=== PATIENT | female | born 1970 | race Hispanic/Latino ===

== ENCOUNTER 2021-05-10 11:42 | Outpatient (CLI) | payer OTHER, SELFPAY ==
--- NOTE | ~2021-05-10 | US_ITS ---
US abdomen complete EXAMINATION: US Abdomen Complete INDICATION: Upper abdomen pain. PROCEDURE: Realtime High Resolution abdomen ultrasound. COMPARISON: No prior studies for comparison FINDINGS: Gallbladder is surgically absent. Common bile duct measures 3 mm. Liver echotexture within normal limits without focal mass. Pancreas within normal limits. Pancreati c tail is obscured by bowel gas. Spleen is unremarkeable. Renal echotexture is within normal limits bilaterally without hydronephrosis, contour deforming mass or renal stone. Right kidney measures 9.7 cm. Left kidney measures 9.5 cm. Visualized aspects of the aorta and IVC are within normal limits. Portal vein is patent. No sonograph ic Wilkins's sign indicated by the technologist. IMPRESSION: 1: Unremarkable abdominal ultrasound. Reviewed, dictated and finalized at location A.
[2021-05-10 13:15] LABS: Basophils Percent Auto 0.7 % (0.2-1.2); Eosinophils Absolute Auto 0.2 K/mm3 (0-0.3); Eosinophils Percent Auto 2.6 % (0-4.4); Hemoglobin 12.9 g/dL (12.0-15.0); Immature Granulocyte Absolute 0.02 K/mm3 (0.00-0.031); Immature Granulocyte Percent A 0.3 % (0-0.5); Lymphocytes Absolute Auto 1.74 K/mm3 (0.9-3.2); Lymphocytes Percent Auto 28.7 % (18.3-44.2); Mean Corpuscular HGB Conc 32.3 g/dl (32-36); Mean Corpuscular Hemoglobin 28.9 pg (26-34); Mean Corpuscular Volume 89.5 fl (80-100); Mean Platelet Volume 9.4 fl (7.4-10.4); Monocytes Absolute Auto 0.2 K/mm3 (0.1-0.6); Neutrophils Absolute Auto 3.9 K/mm3 (1.3-6.7); Neutrophils Percent Auto 63.7 % (45.5-73.1); Platelet Count Result 289 k/mm3 (150-375); Red Blood Count 4.47 M/mm3 (4.2-5.4); Red Cell Distribution Width 13.5 % (11.5-14.5); White Blood Count 6.1 K/mm3 (4.5-10.0)
[2021-05-10 13:33] LABS: Alanine Aminotransferase 19 U/L (4-35); Albumin Level 4.6 g/dL (3.5-5.1); Alkaline Phosphatase 112 U/L (38-126); Amylase 129 U/L (30-110); Anion Gap 6 mmol/L (8-16); Aspartate Amino Transferase 31 U/L (14-36); Bilirubin,Total 0.2 mg/dL (0.2-1.3); Blood Urea Nitrogen 10 mg/dL (7-17); Calcium 9.6 mg/dL (8.4-10.2); Carbon Dioxide 30 mmol/L (22-30); Chloride 103 mmol/L (98-107); Estimated Glomerular Filt Rate > 60; Glucose 92 mg/dL (65-110); Lipase 76 U/L (23-300); Sodium 139 mmol/L (137-145)
[2021-05-10 14:17] LABS: Add Urine Microscopic? YES; Appearance Urine Cloudy (Clear); Bilirubin Urine Negative (Negative); Blood Urine Negative (Negative); Color Urine Yellow (Yellow); Glucose Urine UA Negative (Negative); Ketones Urine Trace mg/dL (Negative); Leukocyte Esterase Ur 2+ LEU/UL (Negative); Nitrate Urine Negative (Negative); Protein Urine Negative (Negative); RBC Urine 0-2 /hpf (0-2); Specific Grav Ur 1.011 (1.001-1.035); Squamous Epithelial Cell Urine Moderate /hpf (Few); Urobilinogen Urine Negative mg/dL (<2.0)
== END 2021-05-10 11:43 | disposition home or self-care (01) ==
PROVIDERS: PCP Internal Medicine; Visit Provider Nurse Practitioner
DX: R10.10 Upper abdominal pain, unspecified (principal); R11.0 Nausea
CPT/HCPCS: 36415; 76700; 80053; 81001; 82150; 83690; 85025

== ENCOUNTER 2024-06-22 09:27 | Emergency (ER) | payer OTHER, SELFPAY ==
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
[2024-06-22 09:37] VITALS: BP 148/79; PULSE 95; RESP 18; TEMP 36.6; O2SAT 99
--- OUTSIDE RECORDS SUMMARY | 2024-06-22 10:03 | XMS_ITS | Clinical Summary ---
Author Organization [facility] Address [address] [place] [address] Care Team Providers Care Utility Driver Name Role Phone Renato Hammonds DO Primary Care Provider [phone] Source Comments [facility],non-owned Affiliates and Associated Physician Practices is amultiple site organization consisting of ambulatory clinics and hospital sitesin [place], [place], [place] and [place]. This disclosure is being madepursuant to the Care Everywhere program and may not contain all information available regarding this patient. Last updated 17.[facility] Allergies No known active allergies Medications * Be aware that medications may not be up to date on this document. Alwaysverify current medications with the patient. Acetaminophen (TYLENOL) 325 MG CAPS Take 325 mg by mouth Active aspirin (ASPIRIN) 325 MG tablet Take 1 Tab by mouth once daily 02/13/2016 Active Social History Tobacco Use Types Packs/Day Years Used Date Smoking Tobacco: Never Assessed Alcohol Use Standard Drinks/Week Comments Yes 2 (1 standard drink = 0.6 oz pur e alcohol) Comments No Sex and Gender Information Value Date Recorded Sex Assigned at Not on file Legal Sex Female 6:27 AM CONSUMER MARKETING ANALYST Gender Identity Not on file Sexual Orientation Not on file Last Filed Vital Signs Vital Sign Reading Time Taken Comments Blood Pressure 116/67 02/13/2016 12:01 PM CONSUMER MARKETING ANALYST Pulse 66 02/13/2016 12:01 PM CONSUMER MARKETING ANALYST Temperature 36.6 C (97.9 F) 02/13/2016 12:01 PM CONSUMER MARKETING ANALYST Respiratory Rate 16 02/13/2016 12:01 PM CONSUMER MARKETING ANALYST Oxygen Saturation 99% 02/13/2016 12:01 PM CONSUMER MARKETING ANALYST Inhaled Oxygen Concentration - - Weight 58.5 kg (129 lb) 02/12/2016 10:58 AM CONSUMER MARKETING ANALYST Height 147.3 cm (4' 10 ) 02/12/2016 10:58 AM CONSUMER MARKETING ANALYST Body Mass Index 26.96 02/12/2016 10:58 AM CONSUMER MARKETING ANALYST Plan of Treatment Health Maintenance Due Date Last Done Comments COLOGUARD (AGES 45-75) - COL ON CA SCREENING 1970 COLON MONITORING 1970 COLONOSCOPY - COLON CA SCREENING 1970 CT COLONOGRAPHY - COLON CA SCREENING 1970 Colorectal Cancer Screening 1970 FIT - COLON CA SCREENING 1970 FLEX SIG - COLON CA SCREENING 1970 MAMMOGRAM 1970 HIV SCREENING 1985 HEPATITIS C SCREENING 02/05/1988 DTAP/TDAP/TD VACCINES (1 - Tdap) 1989 HEPATITIS B VACCINE (1 of 3 - 19+ 3-dose series) 1989 PNEUMOCOCCAL VACCINE 50+ (1 of 1 - PCV) 02/10/2020 ZOSTER VACCINE (1 of 2) 02/10/2020 LIPID TESTING 02/12/2021 02/13/2016 COVID-19 VACCINE (1 - 2023-2 5 season) 2023 DEPRESSION SCREENING 02/19/2024 INFLUENZA VACCINE (Season Ended) 2024 HIB VACCINE Aged Out No longer eligi ble based on patient's age to complete this topic HPV VACCINE Aged Out No longer eligi ble based on patient's age to complete this topic MENINGOCOCCAL (Group B) VACC INE SHARED DECISION-MAKING Aged Out No longer eligibl e based on patient's age to complete this topic MENINGOCOCCAL GROUPS A/C/Y/W VACCINE Aged Out No longer eligible b ased on patient's age to complete this topic Procedures Procedure Name Priority Date/Time Associated Diagnosis Comments LIPID PROFILE AM Draw 02/13/2016 1:21 AM CONSUMER MARKETING ANALYST from Last 3 Months or Most Recently Relevant to Health Maintenance Results * LIPID PROFILE (02/13/2016 1:21 AM CONSUMER MARKETING ANALYST) Cholesterol 172 <200 mg/dL 02/13/2016 1:46 AM CONSUMER MARKETING ANALYST [facility] Triglycerides 87 <150 mg/dL 02/13/2016 1:46 AM CONSUMER MARKETING ANALYST [facility] HDL Cholesterol 89 >40 mg/dL 12/26/201 6 1:46 AM CONSUMER MARKETING ANALYST [facility] LDL Calculated 66 <130 mg/dL 02/13/2016 1:46 AM CONSUMER MARKETING ANALYST [facility] VLDL Calculated 17 <=30 mg/dL 6 1:46 AM [facility] Chol HDL Ratio 1.9 <4.5 02/13/2016 1:46 AM CONSUMER MARKETING ANALYST [facility] LDL/HDL Ratio 0.7 <5.0 02/13/2016 1:46 AM CONSUMER MARKETING ANALYST [facility] Blood BLOOD SPECIMEN / Unknown Lab Venipuncture / Unknown 02/13/2016 1:21 AM CONSUMER MARKETING ANALYST 02/13/2016 1:26 AM CONSUMER MARKETING ANALYST us Shashank Hung MD LAB - CHEMISTRY ORDERABLES Yuliet garcia Result [facility] [address] [id number] from Last 3 Months or Most Recently Relevant to Health Maintenance Insurance [facility] Advance Directives * Full Code (Latest Code Status on File) Date Activated Date Inactivated Comments 02/12/2016 7:11 PM 02/13/2016 4:03 PM Care Teams Utility Driver Relationship Specialty Start Date End Date Renato Hammonds DO PCP - General Internal Medicine 02/12/16
--- OUTSIDE RECORDS SUMMARY | 2024-06-22 10:03 | XMS_ITS | Referral Summary ---
Author Organization [facility] [address] [facility] Address [address] [place] [address] Care Team Providers Care Tower Switch Operator Name Role Phone Jonatan Roach MD Primary Care Provider + Bill Walker MD Unavailable [phone] Allergies Active Allergy Reactions Criticality Noted Date Comments Morphine Shortness of breath High 01/05/2022 Medications Ozempic 0.25 mg or 0.5 mg(2 mg/1.5 mL) pen injector INJECT 0.25MG UNDERSKIN ONCE WEEKLY 0 Active traZODone (DESYREL) 100 mg tablet TK 1 T PO Q NIGHT HS 0 Active HYDROcodone-catherine taminophen (NORCO) 7.5-325 mg per tablet TAKE 1 TABLET BY MOUTH TWICE DAILY NEEDED DO NOT EXCEED TWO TABLETS DAILY 0 Active Emgality Pen 120 mg/mL pen injector 0 Active cyclobenzaprine (FLEXERIL) 10 mg tablet Take 1 tablet by mouth every 8 hours Active aspirin 325 mg tablet Take 325 mg by mouth daily 6 Active acetaminophen 325 mg capsule Take 325 mg by mouth Active bacitracin (bacitracin) 500 unit/gram ointment apply by topical route to right hallux twice daily 0 Active Active Problems No known active problems Social History Tobacco Use Types Packs/Day Years Used Date Smoking Tobacco: Former Smokeless Tobacco: Never Comments:16 yrs ago Alcohol Use Standard Drinks/Week Comments Not Currently 0 (1 standard drink = 0.6 oz pur e alcohol) Personal Safety Answer Date Recorded Getting School Help Needed Not on file 01/30 Comments No Sex and Gender Information Value Date Recorded Sex Assigned at Not on file Legal Sex Female 10:12 AM VOCATIONAL GUIDANCE COUNSELOR Gender Identity Not on file Sexual Orientation Not on file Last Filed Vital Signs Vital Sign Reading Time Taken Comments Blood Pressure 156/92 04/20/2019 2:35 PM VOCATIONAL GUIDANCE COUNSELOR Pulse 95 04/20/2019 2:35 PM VOCATIONAL GUIDANCE COUNSELOR Temperature 36.1 C (97 F) 04/20/2019 12:34 PM VOCATIONAL GUIDANCE COUNSELOR Respiratory Rate 15 04/20/2019 2:35 PM VOCATIONAL GUIDANCE COUNSELOR Oxygen Saturation 100% 04/20/2019 2:35 PM VOCATIONAL GUIDANCE COUNSELOR Inhaled Oxygen Concentration - - Weight - - Height - - Body Mass Index - - Plan of Treatment Not on file Procedures Procedure Name Priority Date/Time Associated Diagnosis Comments SCREENING MAMMOGRAM BILATERAL W NIDIA Schedule Routine, Read Routine (OP Routine) 03/30/2022 9:37 AM VOCATIONAL GUIDANCE COUNSELOR Screening mammogram, encounter for COLONOSCOPY 04/20/2019 1:23 PM VOCATIONAL GUIDANCE COUNSELOR from Last 3 Months or Most Recently Relevant to Health Maintenance Results * Screening Mammogram Bilateral W Nidia (03/30/2022 9:37 AM VOCATIONAL GUIDANCE COUNSELOR) Anatomical Region Laterality Modality Breast Bilateral Mammography Narrative 04/03/2022 1:43 PM VOCATIONAL GUIDANCE COUNSELOR Mammogram Technique: Bilateral Digital Breast Tomosynthesis, Bilateral C-view 2D Screening mammogram. Views obtained: bilateral craniocaudal and bilateral mediolateral oblique. Computer Aided Detection was performed. Mammogram Findings: The present examination has been compared to a prior imaging study performed at [facility] on 10/02/2017. The breasts are heterogeneously dense, which may obscure small masses. There is no suspicious abnormality in either breast. There are no significant changes from the prior study. Impression: There is no mammographic evidence of malignancy. Annual screening mammography is recommended. OVERALL FINAL ASSESSMENT: BI-RADS CATEGORY 1: Negative. Procedure Note Opal Flores MD - 04/03/2022 Mammogram Technique: Bilateral Digital Breast Tomosynthesis, Bilateral C-view 2D Screening mammogram. Views obtained: bilateral craniocaudal and bilateral mediolateral oblique. Computer Aided Detection was performed. Mammogram Findings: The present examination has been compared to a prior imaging study performed at [facility] on 10/02/2017. The breasts are heterogeneously dense, which may obscure small masses. There is no suspicious abnormality in either breast. There are no significant changes from the prior study. Impression: There is no mammographic evidence of malignancy. Annual screening mammography is recommended. OVERALL FINAL ASSESSMENT: BI-RADS CATEGORY 1: Negative. us Self Screening Mammogram IMG MAMMO PROCEDURES Fi nal Result * COLONOSCOPY (04/20/2019 1:23 PM VOCATIONAL GUIDANCE COUNSELOR) Anatomical Region Laterality Modality Other Narrative Procedure Note Gelacio Kim MD - 04/20/2019 1:23 PM CST ENDOSCOPY LAB Patient Name: Ana Markham Procedure Date: 04/20/2019 1:23 PM Admit Type: Outpatient Room: [facility] Date of : 1970 Instrument Name: [id number] Gender: Female Note Status: Cable Mechanic Override Procedure: Colonoscopy Indications: Screening for colorectal malignant neoplasm, This isthe patient's first colonoscopy Providers: Gelacio Kim M.D. Referring MD: Jonatan Roach MD Medicines: Propofol per Anesthesia Complications: No immediate complications. Estimated Blood Loss: Estimated blood loss: none. Procedure: Pre-Anesthesia Assessment: - Pre-procedure physical examination revealed no contraindications to sedation. - The risks and benefits of the procedure and thesedation options and risks were discussed with the patient. All questions were answered and informed consent wasobtained. The benefits, risks and alternatives of the procedureand sedation were discussed and informed consent wasobtained. All questions were answered. Please refer to the signed informed consent document in the medical record. Thescope was passed under direct vision. The Colonoscope was introduced through the anus and advanced to the thececum, identified by appendiceal orifice and ileocecal valve.The colonoscopy was performed without difficulty. Thepatient tolerated the procedure well. The quality of the bowel preparation was good. The quality of the bowelpreparation was evaluated using the BBPS (Pemberton Bowel Preparation Scale) with scores of: Right Colon = 3 (entire mucosaseen well with no residual staining, small fragments ofstool or opaque liquid), Transverse Colon = 3 (entire mucosa seen well with no residual staining, small fragments of stool or opaque liquid) and Left Colon = 3 (entiremucosa seen well with no residual staining, small fragments of stool or opaque liquid). The total BBPS score equals 9. The bowel preparation used was SUPREP. Bowel prep was administered using a split dose. Bowel prep was administered using a split dose. Findings: A 5 mm polyp was found in the ascending colon. The polyp was sessile. The polyp was removed with a jumbo cold forceps. Resection andretrieval were complete. The exam was otherwise without abnormality on direct and retroflexion views. Impression: - One 5 mm polyp in the ascending colon, removed with a jumbo cold forceps. Resected and retrieved. - The examination was otherwise normal on direct and retroflexion views. Recommendation: - Await pathology results. - Repeat colonoscopy in 5 years for surveillance. - I suspect symptoms are due to IBS-C and wouldordinarily recommend trials of Linzess or Trulance. However, trazodone could enhance constipating symptoms and this might interfere with trials. I will refer to University specialist in IBS for further recommendations. - Meanwhile, increase water and dietary fiber (leafy,raw vegetables) to prevent straining and loose stools. Ifnot sufficient, add OTC fiber products such as Benefiber, Citrucel, Metamucil, Konsyl, Fibercon or other fiber product. Electronically signed by Gelacio Kim MD Gelacio Kim M.D. 04/20/2019 2:08:59 PM Number of Addenda: 0 Note Initiated On: 04/20/2019 1:23 PM Gelacio Kim MD ENDOSCOPY PROCEDURES Edited Result - Final from Last 3 Months or Most Recently Relevant to Health Maintenance Insurance [facility] Member Subscriber Plan / Payer (Ef fective 2017-Present) Name:Ana Markham Relation to Subscriber:Self Name:Ana Markham Payer ID:[id number] Type:MANAGED CARE OTHER Address: [address] [facility] Care Teams Tower Switch Operator Relationship Specialty Start Date End Date Jonatan Roach MD [address] [place] [address] PCP - General Internal Medicine 11/18/19 Bill Walker MD [address] [facility] [address] [place] [address] Animal Husbandry Manager Cardiology 03/02/24
--- OUTSIDE RECORDS SUMMARY | 2024-06-22 10:03 | XMS_ITS | Encounter Summary ---
Author Organization [facility] Address [address] [place] [address] Care Team Providers Care Painting And Coating Worker Name Role Phone No, Physician Primary Care Provider [phone] Reason for Visit * Diagnostic Imaging (Routine) - Closed Specialty Diagnoses / Procedures Referred By Contac t Referred To Contact Procedures Breast Imaging Screening Outside Reference Referral, Self Referral ID Status Reason Start Date Expiration Date Visits Re quested Visits Authorized [id number] Closed 04/02/2022 05/02/2023 1 1 Encounter Details Date Type Department Care Team (Late st Contact Info) Description 10/02/2017 Hospital Encounter [facility]iology [facility] [address] [place] [id number] Social History Tobacco Use Types Packs/Day Years [...] on file Legal Sex Female 10:12 AM PRACTICE PERFORMANCE MANAGER Gender Identity Not on file Sexual Orientation Not on file documented as of this encounter Plan of Treatment Not on file documented as of this encounter Procedures Procedure Name Priority Date/Time Associated Diagnosis Comments BREAST IMAGING MG SCREENING OUTSIDE REFERENCE Routine 10/02/2017 12:00 AM CDT documented in this encounter Results * Breast Imaging Screening Outside Reference (10/02/2017 12:00 AM CDT) Impressions [facility]MO[facility] - 04/02/2022 1:30 PM PRACTICE PERFORMANCE MANAGER These images are for Reference purposes only and have not been reviewed by [facility] Radiology. There will be no report generated by a [facility] Radiologist. Narrative [facility]MO[facility] - 04/02/2022 1:30 PM PRACTICE PERFORMANCE MANAGER EXAMINATION: Images For Reference Purposes Only us Self Referral IMG MAMMO PROCEDURES Final Resul t [facility]_MAMMO[facility] documented in this encounter Visit Diagnoses Not on filedocumented in this encounter Care Teams Painting And Coating Worker Relationship Specialty Start Date End Date No, Physician PCP - General 09/20/17 04/19/19 documented as of this encounter
--- OUTSIDE RECORDS SUMMARY | 2024-06-22 10:04 | XMS_ITS | Clinical Summary ---
Author Organization [facility] Address [id number] [place] [address] [place] [address] Care Team Providers Care Component Overhaul Operator Name Role Phone Unavailable Primary Care Provider Unavailabl e Allergies Active Allergy Reactions Criticality Noted Date Comments Morphine Shortness of Breath/Wheezing High 022 Medications Ozempic 0.25 mg or 0.5 mg(2 mg/1.5 mL) Pen Injector INJCET 0.5MG SUBCUTANEOUSLY EVERY WEEK 2 Active traZODone (DESYREL) 100 mg tablet Take 100 mg by mouth daily at bedtime. 2 Active Active Problems No known active problems Encounters Date Type Department Care Team Description 06/02/2024 External Device Data [facility] ABSTRACTION Provider, Abstract 05/19/2024 External Device Data [facility] AB[facility]CTION Provider, Abstract 04/28/2024 External Device Data [facility] ABSTRACTION Provider, Abstract 04/28/2024 External Device Data [facility] AB[facility]CTION Provider, Abstract 04/27/2024 External Device Data [facility] AB[facility]CTION Provider, Abstract 04/25/2024 External Device Data [facility] ABSTRACTION Provider, Abstract 04/24/2024 External Device Data [facility] AB[facility]CTION Provider, Abstract 04/21/2024 7:35 AM INFORMATION TECHNOLOGY INTERN - 04/21/2024 11:59 PM INFORMATION TECHNOLOGY INTERN Hospital Encounter [facility] Mobile Mamm[facility] [address] [place] [address] Mirlande Harkins MD Discharge Disposition: Home or Self Care from Last 3 Months Family History Medical History Relation Name Comments Breast Cancer Maternal Cousin Relation Name Status Comments Maternal Cousin Social History Tobacco Use Types Packs/Day Years Used Date Smoking Tobacco: Never Smokeless Tobacco: Never Alcohol Use Standard Drinks/Week Comments Not Currently 0 (1 standard drink = 0.6 oz pur e alcohol) Feeling Safe Answer Date Recorded Are you in a relationship wi th someone who hurts you emotionally and/or physically? No 09/09/2023 Comments No Sex and Gender Information Value Date Recorded Sex Assigned at Not on file Legal Sex Female 11:08 AM INFORMATION TECHNOLOGY INTERN Gender Identity Not on file Sexual Orientation Not on file Last Filed Vital Signs Vital Sign Reading Time Taken Comments Blood Pressure 128/72 09/09/2023 4:15 PM CDT Pulse 107 09/09/2023 1:27 PM CDT Temperature 36.8 C (98.3 F) 09/09/2023 1:27 PM CDT Respiratory Rate 18 09/09/2023 4:15 PM CDT Oxygen Saturation 99% 09/09/2023 4:15 PM CDT Inhaled Oxygen Concentration - - Weight 46.3 kg (102 lb) 09/09/2023 1:27 PM CDT Height 149.9 cm (4' 11 ) 09/09/2023 1:27 PM CDT Body Mass Index 20.6 09/09/2023 1:27 PM CDT Plan of Treatment Health Maintenance Due Date Last Done Comments Pre-Diabetes and Diabetes Screening 1970 DTAP/TDAP/TD VACCINES (1 - Tdap) 1989 HEPATITIS B VACCINES (1 of 3 - 19+ 3-dose series) 1989 HPV/Cotest (21-29) 1991 CERVICAL CANCER SCREENING 02/10/2000 HPV/Cotest (30-65) 02/10/2000 PAP SMEAR 02/10/2000 FIT-DNA Q 3 years 2015 FIT/FOBT Q 1 year 2015 Flex Sig/CT Colonography Q 5 years 2015 ZOSTER VACCINE (1 of 2) 02/10/2020 INFLUENZA VACCINE (#1) 2023 BREAST CANCER SCREENING 04/21/2025 04/22/19 25, 03/30/2022, 03/30/2022 COLORECTAL SCREENING 04/19/2029 04/20/2019, 04/20/19 Colorectal Cancer Screening 04/19/2029 Procedures Procedure Name Priority Date/Time Associated Diagnosis Comments MAMMO 3D NIDIA SCREEN BILAT W OR WO CAD Routine 04/21/2024 9:12 AM INFORMATION TECHNOLOGY INTERN Visit for screening mammogram from Last 3 Months Results * MAMMO 3D NIDIA SCREEN BILAT W OR WO CAD (04/21/2024 9:12 AM INFORMATION TECHNOLOGY INTERN) Anatomical Region Laterality Modality Breast Bilateral Mammography 04/21/2024 9:12 AM INFORMATION TECHNOLOGY INTERN Impressions 04/27/2024 8:25 AM CDT IMPRESSION: No mammographic evidence of malignancy. OVERALL FINAL ASSESSMENT: BI-RADS Category 2: Benign finding(s). RECOMMENDATION: Bilateral screening mammogram in one year. DICTATION LOCATION: Location 1 - [facility] Narrative 04/27/2024 8:25 AM CDT BILATERAL SCREENING DIGITAL MAMMOGRAM WITH TOMOSYNTHESIS AND CAD DATE: 04/21/2024 9:12 AM COMPARISON: 03/30/2022. HISTORY: Screening mammogram. History of breast reduction. TECHNIQUE: Low-dose full-field digital breast tomosynthesis examination was performed with 2D and 3D acquisitions. Examination is read in conjunction with computer aided detection. BREAST COMPOSITION: The breasts are heterogeneously dense, which may obscure small masses. FINDINGS: Postoperative appearance of reduction mammoplasty. There is no suspicious mass, clustered microcalcification, or architectural distortion in either breast on 2D or tomosynthesis images. There has been no change in the mammographic appearance compared with the prior study. Jonatan Roach MD MAMMO ORDERABLES Final Re sult from Last 3 Months Insurance [employer] [facility] [id number]
--- OUTSIDE RECORDS SUMMARY | 2024-06-22 10:04 | XMS_ITS | CONTINUITY OF CARE DOCUMENT ---
Author Name aubrey burgos Address Unknown Organization [facility] Address [address] [place] [address] Phone [phone] Care Team Providers Care Coastal And Estuary Specialist Name Role Phone Sindy LEDBETTER, Pablo Dominguez Unavailable [phone] WILLIAM ROSA MD Unavailable WILLIAM ROSA MD Unavailable [phone] INSURANCE PROVIDERS Payer name Policy type / Coverage type [place] red democrat ID [employer] insurance company L [id number] MERGED WITH [facility] [employer] insurance [employer] [id number]
--- OUTSIDE RECORDS SUMMARY | 2024-06-22 10:04 | XMS_ITS | Clinical Summary ---
Author Organization [place] [id number] [facility] Address [address] [place] [address] Care Team Providers Care Engine Mechanic Name Role Phone Jonatan Roach MD Primary Care Provider + Bill Walker MD Unavailable [phone] Allergies Active Allergy Reactions Criticality Noted Date [...] Active Active Problems No known active problems Surgical History Surgery Date Site/Laterality Comments HYSTERECTOMY CHOLECYSTECTOMY APPENDECTOMY REDUCTION MAMMAPLASTY Medical History Medical History Date Comments Chronic constipation Tachycardia Type 2 diabetes mellitus (HCC) Social History Tobacco Use Types Packs/Day Years [...] on file Legal Sex Female 10:12 AM CODING DIRECTOR Gender Identity Not on file Sexual Orientation Not on file Obstetrics History Last Filed Vital Signs Vital Sign Reading Time Taken Comments Blood Pressure 156/92 04/20/2019 2:35 PM CODING DIRECTOR Pulse 95 04/20/2019 2:35 PM CODING DIRECTOR Temperature 36.1 C (97 F) 04/20/2019 12:34 PM CODING DIRECTOR Respiratory Rate 15 04/20/2019 2:35 PM CODING DIRECTOR Oxygen Saturation 100% 04/20/2019 2:35 PM CODING DIRECTOR Inhaled Oxygen Concentration - - Weight - - Height - - Body Mass Index - - Plan of Treatment Health Maintenance Due Date Last Done Comments Depression Screening 1970 Hepatitis C Screening 1970 DTaP/Tdap/Td Vaccine (1 - Tdap) 1981 Hepatitis B Screening 02/10/1988 Regular Well Visit/Exam 18-64 02/10/1988 Zoster Vaccine (1 of 2) 02/10/2020 Breast Cancer Screening-Mammogram 03/30/2023 023 Covid-19 Vaccine (2 - 2023-2 5 season) 2023 11/24/2020 Influenza Vaccine (Season Ended) 2024 Colon Cancer Screening-Colonoscopy 04/19/20292019 Pneumococcal vaccine <65 Aged Out 06/14/2018 No longer eligible based on patient's age to complete this topic Procedures Procedure Name Priority Date/Time Associated Diagnosis Comments SCREENING MAMMOGRAM BILATERAL W NIDIA Schedule Routine, Read Routine (OP Routine) 03/30/2022 9:37 AM CODING DIRECTOR Screening mammogram, encounter for COLONOSCOPY 04/20/2019 1:23 PM CODING DIRECTOR from Last 3 Months or Most Recently Relevant to Health Maintenance Results * Screening Mammogram Bilateral W Nidia (03/30/2022 9:37 AM CODING DIRECTOR) Anatomical Region Laterality Modality Breast Bilateral Mammography Narrative 04/03/2022 1:43 PM CODING DIRECTOR Mammogram Technique: Bilateral Digital Breast Tomosynthesis, Bilateral C-view 2D Screening mammogram. Views obtained: bilateral craniocaudal and bilateral mediolateral oblique. Computer Aided Detection was performed. Mammogram Findings: The present examination has been compared to a prior imaging study performed at [facility] on 10/02/2017. The breasts are heterogeneously dense, [...] to a prior imaging study performed at [facility] on 10/02/2017. The breasts are heterogeneously dense, [...] nal Result * COLONOSCOPY (04/20/2019 1:23 PM CODING DIRECTOR) Anatomical Region Laterality Modality Other Narrative Procedure Note Gelacio Kim MD - 04/20/2019 1:23 PM CST ENDOSCOPY LAB Patient Name: Ana Markham Procedure Date: 04/20/2019 1:23 PM Admit Type: Outpatient Room: [facility] 8 Date of : 1970 Instrument Name: [id number] Gender: Female Note Status: Instructional Design Technologist Override Procedure: Colonoscopy Indications: Screening for colorectal [...] the bowelpreparation was evaluated using the BBPS ([place] Bowel Preparation Scale) with scores of: Right [...] Recently Relevant to Health Maintenance Insurance M[facility]IPLAN [facility] CHOICE PLUS [facility] Member Subscriber Plan / Payer (Ef fective 2017-Present) Name:Ana Markham Relation to Subscriber:Self Name:Ana Markham Payer ID:[id number] Type:MANAGED CARE OTHER Address: [address] CHOICE PLUS [facility] CHOICE PLUS Care Teams Engine Mechanic Relationship Specialty Start Date End Date Jonatan Roach MD [address] [place] [address] PCP - General Internal Medicine 11/18/19 Bill Walker MD [address] [place] [address] [facility] 03/02/24
[2024-06-22 10:19] VITALS: BP 145/82; PULSE 88; RESP 100; O2SAT 100
[2024-06-22 10:43] LABS: Basophils Absolute Auto 0.1 K/mm3 (0.0-0.1); Basophils Percent Auto 0.7 % (0.2-1.2); Eosinophils Absolute Auto 0.1 K/mm3 (0-0.3); Eosinophils Percent Auto 1.2 % (0-4.4); Hematocrit 42.4 % (37.0-47.0); Hemoglobin 13.9 g/dL (12.0-15.0); Immature Granulocyte Absolute 0.02 K/mm3 (0.00-0.031); Immature Granulocyte Percent A 0.2 % (0-0.5); Lymphocytes Absolute Auto 1.62 K/mm3 (0.9-3.2); Lymphocytes Percent Auto 17.8 % (18.3-44.2); Mean Corpuscular HGB Conc 32.8 g/dl (32-36); Mean Corpuscular Hemoglobin 30.2 pg (26-34); Mean Platelet Volume 9.1 fl (7.4-10.4); Monocytes Absolute Auto 0.5 K/mm3 (0.1-0.6); Monocytes Percent Auto 5.7 % (2.6-8.5); Neutrophils Absolute Auto 6.8 K/mm3 (1.3-6.7); Neutrophils Percent Auto 74.4 % (45.5-73.1); Platelet Count Result 302 k/mm3 (150-375); Red Blood Count 4.61 M/mm3 (4.2-5.4); Red Cell Distribution Width 13.5 % (11.5-14.5); White Blood Count 9.1 K/mm3 (4.5-10.0)
[2024-06-22 10:46] LABS: Add Urine Microscopic? YES; Appearance Urine Clear (Clear); Bacteria Urine None Seen /hpf; Bilirubin Urine Negative (Negative); Blood Urine Negative (Negative); Color Urine Yellow (Yellow); Glucose Urine UA Negative (Negative); Ketones Urine Negative (Negative); Leukocyte Esterase Ur Trace LEU/UL (Negative); Nitrate Urine Negative (Negative); Non Pathogenic Casts 0-2; Protein Urine Trace mg/dL (Negative); Specific Grav Ur 1.014 (1.001-1.035); Squamous Epithelial Cell Urine None Seen /hpf (Few)
[2024-06-22 10:58] LABS: Alanine Aminotransferase 18 U/L (6-35); Albumin Level 4.8 g/dL (3.5-5.1); Alkaline Phosphatase 93 U/L (38-126); Anion Gap 14 mmol/L (4-12); Aspartate Amino Transferase 31 U/L (14-36); Bilirubin,Total 0.4 mg/dL (0.2-1.3); Blood Urea Nitrogen 9 mg/dL (7-17); Calcium 9.8 mg/dL (8.4-10.2); Carbon Dioxide 24 mmol/L (22-30); Chloride 106 mmol/L (98-107); Estimated Glomerular Filt Rate > 60; Glucose 111 mg/dL (65-110); Potassium 4.2 mmol/L (3.4-5.0); Sodium 144 mmol/L (137-145)
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
--- NOTE | 2024-06-22 11:40 | ECG_ITS ---
Test Date: 2024-06-22 12:16:51 Measurements Intervals Wise Rate: 82 P: 53 [place]: 131 QRS: 36 QRSD: 81 T: 51 QT: 350 QTc: 410 Interpretive Statements SINUS RHYTHM NORMAL ECG No previous ECG available for comparison Electronically Signed On 06-22-2024 15:46:31 CDT by Abhilash Herrera M.D.
--- OUTSIDE RECORDS SUMMARY | 2024-06-22 12:09 | XMS_ITS | Clinical Summary ---
Author Organization [place] [id number] [facility] Address [address] [place] [address] Care Team Providers Care Editor Producer Name Role Phone Jonatan Roach MD Primary Care Provider + Bill Walker MD Unavailable [phone] Allergies Active Allergy Reactions Criticality Noted Date [...] on file Legal Sex Female 10:12 AM FRYER OPERATOR Gender Identity Not on file Sexual Orientation Not on file Obstetrics History Last Filed Vital Signs Vital Sign Reading Time Taken Comments Blood Pressure 156/92 04/20/2019 2:35 PM FRYER OPERATOR Pulse 95 04/20/2019 2:35 PM FRYER OPERATOR Temperature 36.1 C (97 F) 04/20/2019 12:34 PM FRYER OPERATOR Respiratory Rate 15 04/20/2019 2:35 PM FRYER OPERATOR Oxygen Saturation 100% 04/20/2019 2:35 PM FRYER OPERATOR Inhaled Oxygen Concentration - - Weight - [...] Read Routine (OP Routine) 03/30/2022 9:37 AM FRYER OPERATOR Screening mammogram, encounter for COLONOSCOPY 04/20/2019 1:23 PM FRYER OPERATOR from Last 3 Months or Most Recently Relevant to Health Maintenance Results * Screening Mammogram Bilateral W Nidia (03/30/2022 9:37 AM FRYER OPERATOR) Anatomical Region Laterality Modality Breast Bilateral Mammography Narrative 04/03/2022 1:43 PM FRYER OPERATOR Mammogram Technique: Bilateral Digital Breast Tomosynthesis, Bilateral C-view 2D Screening mammogram. Views obtained: bilateral craniocaudal and bilateral mediolateral oblique. Computer Aided Detection was performed. Mammogram Findings: The present examination has been compared to a prior imaging study performed at [facility] on 10/02/2017. The breasts are heterogeneously dense, [...] to a prior imaging study performed at [facility] on 10/02/2017. The breasts are heterogeneously dense, [...] nal Result * COLONOSCOPY (04/20/2019 1:23 PM FRYER OPERATOR) Anatomical Region Laterality Modality Other Narrative Procedure Note Gelacio Kim MD - 04/20/2019 1:23 PM CST ENDOSCOPY LAB Patient Name: Ana Markham Procedure Date: 04/20/2019 1:23 PM Admit Type: Outpatient Room: [facility] [address] 8 Date of : 1970 Instrument Name: [id number] Gender: Female Note Status: Jewel Bearing Facer Override Procedure: Colonoscopy Indications: Screening for colorectal [...] the bowelpreparation was evaluated using the BBPS ([place] Bowel Preparation Scale) with scores of: Right [...] Recently Relevant to Health Maintenance Insurance [facility]LAN [facility] CHOICE PLUS [facility] Member Subscriber Plan / Payer (Ef fective 2017-Present) Name:Ana Markham Relation to Subscriber:Self Name:Ana Markham Payer ID:[id number] Type:MANAGED CARE OTHER Address: [address] CHOICE PLUS [facility] CHOICE PLUS Care Teams Editor Producer Relationship Specialty Start Date End Date Jonatan Roach MD [address] [place] [address] PCP - General Internal Medicine 11/18/19 Bill Walker MD [address] [place] [address] Boat Dock Operator Cardiology 03/02/24
--- OUTSIDE RECORDS SUMMARY | 2024-06-22 12:09 | XMS_ITS | CONTINUITY OF CARE DOCUMENT ---
Author Name aubrey burgos Address Unknown Organization [facility] Address [address] [place] [address] Phone [phone] Care Team Providers Care Drug Enforcement Agent Name Role Phone Sindy LEDBETTER, Pablo Dominguez Unavailable [phone] WILLIAM ROSA MD Unavailable [phone] WILLIAM ROSA MD Unavailable [phone] INSURANCE PROVIDERS Payer name Policy type / Coverage type [employer] insurance company L [id number] [facility] [employer] insurance [email or web address] [id number]
--- OUTSIDE RECORDS SUMMARY | 2024-06-22 12:09 | XMS_ITS | Patient Health Record ---
Author Organization [facility] Address [address] [place] [address] Care Team Providers Care Lockstitch Sleeve Setter Name Role Phone Doc LEDBETTER, Jonatan Primary Care Provider Unav tawana SWANSON MD, LAURA Unavailable REASON FOR REFERRAL No Information PROBLEMS Problem Type ICD Code Onset Dates Problem Status W/U Status Risk SNOMED Code Notes Problem Constipation, unspecified (K59.00) Active confirmed PLAN OF TREATMENT Pending Test Test Name Order Date Colonoscopy 04/09/2019 Insurance Providers Payer Name Payer Address Payer Phone Subscriber Number Group Number Insured Name Patient Relationship to Insured Coverage Start Date Coverage End Date [facility] [address] [place], [place] [id number] Ana Markham Self - patient is the insured
--- OUTSIDE RECORDS SUMMARY | 2024-06-22 12:09 | XMS_ITS | Encounter Summary ---
Author Organization [facility] Address [address] [place] [address] Care Team Providers Care Wood Model Maker Name Role Phone No, Physician Primary Care Provider [phone] Reason for Visit * Diagnostic Imaging (Routine) - Closed Specialty Diagnoses / Procedures Referred By Contac t Referred To Contact Procedures Breast Imaging Screening Outside Reference Referral, Self Referral ID Status Reason Start Date Expiration Date Visits Re quested Visits Authorized [id number] Closed 04/02/2022 05/02/2023 1 1 Encounter Details Date Type Department Care Team (Late st Contact Info) Description 10/02/2017 Hospital Encounter [facility] [address] [id number] Social History Tobacco Use Types Packs/Day [...] on file Legal Sex Female 10:12 AM MOUNTAIN BIKE GUIDE Gender Identity Not on file Sexual Orientation [...] CDT) Impressions RAD_MAMMO_[facility] - 04/02/2022 1:30 PM MOUNTAIN BIKE GUIDE These images are for Reference purposes only and have not been reviewed by [facility] Radiology. There will be no report generated by a [facility] Radiologist. Narrative [facility]_MAMMO_[facility] - 04/02/2022 1:30 PM MOUNTAIN BIKE GUIDE EXAMINATION: Images For Reference Purposes Only us Self Referral IMG MAMMO PROCEDURES Final Resul t RAD_MAMMO_[facility] documented in this encounter Visit Diagnoses Not on filedocumented in this encounter Care Teams Wood Model Maker Relationship Specialty Start Date End Date No, Physician PCP - General 09/20/17 04/19/19 documented as of this encounter
--- OUTSIDE RECORDS SUMMARY | 2024-06-22 12:09 | XMS_ITS | Clinical Summary ---
Author Organization [facility] Address [address] [place] [address] Care Team Providers Care Solar Applications Development Engineer Name Role Phone Renato Hammonds DO Primary Care Provider [phone] Source Comments [facility],non-owned Affiliates and Associated Physician Practices is amultiple site organization consisting of ambulatory clinics and hospital sitesin [place], [place], [place] and [place]. This disclosure is being madepursuant to the Care Everywhere program and may not contain all information available regarding this patient. Last updated 17.[facility] Allergies No known active allergies Medications * [...] on file Legal Sex Female 6:27 AM SAP BASIS ARCHITECT Gender Identity Not on file Sexual Orientation Not on file Last Filed Vital Signs Vital Sign Reading Time Taken Comments Blood Pressure 116/67 02/13/2016 12:01 PM SAP BASIS ARCHITECT Pulse 66 02/13/2016 12:01 PM SAP BASIS ARCHITECT Temperature 36.6 C (97.9 F) 02/13/2016 12:01 PM SAP BASIS ARCHITECT Respiratory Rate 16 02/13/2016 12:01 PM SAP BASIS ARCHITECT Oxygen Saturation 99% 02/13/2016 12:01 PM SAP BASIS ARCHITECT Inhaled Oxygen Concentration - - Weight 58.5 kg (129 lb) 02/12/2016 10:58 AM SAP BASIS ARCHITECT Height 147.3 cm (4' 10 ) 02/12/2016 10:58 AM SAP BASIS ARCHITECT Body Mass Index 26.96 02/12/2016 10:58 AM SAP BASIS ARCHITECT Plan of Treatment Health Maintenance Due Date [...] LIPID PROFILE AM Draw 02/13/2016 1:21 AM SAP BASIS ARCHITECT from Last 3 Months or Most Recently Relevant to Health Maintenance Results * LIPID PROFILE (02/13/2016 1:21 AM SAP BASIS ARCHITECT) Cholesterol 172 <200 mg/dL 02/13/2016 1:46 AM SAP BASIS ARCHITECT [facility] Triglycerides 87 <150 mg/dL 02/13/2016 1:46 AM SAP BASIS ARCHITECT [facility] HDL Cholesterol 89 >40 mg/dL 12/26/201 6 1:46 AM SAP BASIS ARCHITECT [facility] LDL Calculated 66 <130 mg/dL 02/13/2016 1:46 AM SAP BASIS ARCHITECT [facility] VLDL Calculated 17 <=30 mg/dL 6 1:46 AM [facility] Chol HDL Ratio 1.9 <4.5 02/13/2016 1:46 AM SAP BASIS ARCHITECT [facility] LDL/HDL Ratio 0.7 <5.0 02/13/2016 1:46 AM SAP BASIS ARCHITECT [facility] Blood BLOOD SPECIMEN / Unknown Lab Venipuncture / Unknown 02/13/2016 1:21 AM SAP BASIS ARCHITECT 02/13/2016 1:26 AM SAP BASIS ARCHITECT us Shashank Hung MD LAB - CHEMISTRY ORDERABLES Yuliet garcia Result [facility] [address] [id number] from Last 3 Months or Most Recently Relevant to Health Maintenance Insurance [facility] Advance Directives * Full Code (Latest Code Status on File) Date Activated Date Inactivated Comments 02/12/2016 7:11 PM 02/13/2016 4:03 PM Care Teams Solar Applications Development Engineer Relationship Specialty Start Date End Date Renato Hammonds DO PCP - General Internal Medicine 02/12/16
--- OUTSIDE RECORDS SUMMARY | 2024-06-22 12:09 | XMS_ITS | Clinical Summary ---
Author Organization [facility] Address [address] [place] [address] [place] [address] Care Team Providers Care Communications Department Head Name Role Phone Unavailable Primary Care Provider [...] STL ABSTRACTION Provider, Abstract 04/21/2024 7:35 AM DROP WIRE BUILDER - 04/21/2024 11:59 PM DROP WIRE BUILDER Hospital Encounter [facility] [address] [place] [address] Mirlande Harkins MD Discharge Disposition: [...] on file Legal Sex Female 11:08 AM DROP WIRE BUILDER Gender Identity Not on file Sexual Orientation [...] OR WO CAD Routine 04/21/2024 9:12 AM DROP WIRE BUILDER Visit for screening mammogram from Last 3 Months Results * MAMMO 3D NIDIA SCREEN BILAT W OR WO CAD (04/21/2024 9:12 AM DROP WIRE BUILDER) Anatomical Region Laterality Modality Breast Bilateral Mammography 04/21/2024 9:12 AM DROP WIRE BUILDER Impressions 04/27/2024 8:25 AM CDT IMPRESSION: No mammographic evidence of malignancy. OVERALL FINAL ASSESSMENT: BI-RADS Category 2: Benign finding(s). RECOMMENDATION: Bilateral screening mammogram in one year. DICTATION LOCATION: Location 1 - [facility] Narrative 04/27/2024 8:25 AM CDT [...] Re sult from Last 3 Months Insurance [employer] [facility] [id number]
--- OUTSIDE RECORDS SUMMARY | 2024-06-22 12:09 | XMS_ITS | Referral Summary ---
Author Organization [facility] [address] [facility] Address [address] [place] [address] Care Team Providers Care Noc Analyst Name Role Phone Jonatan Roach MD Primary Care Provider + Bill Walker MD Unavailable [phone] Allergies Active Allergy Reactions Criticality Noted Date [...] on file Legal Sex Female 10:12 AM EYE SURGEON Gender Identity Not on file Sexual Orientation Not on file Last Filed Vital Signs Vital Sign Reading Time Taken Comments Blood Pressure 156/92 04/20/2019 2:35 PM EYE SURGEON Pulse 95 04/20/2019 2:35 PM EYE SURGEON Temperature 36.1 C (97 F) 04/20/2019 12:34 PM EYE SURGEON Respiratory Rate 15 04/20/2019 2:35 PM EYE SURGEON Oxygen Saturation 100% 04/20/2019 2:35 PM EYE SURGEON Inhaled Oxygen Concentration - - Weight - - Height - - Body Mass Index - - Plan of Treatment Not on file Procedures Procedure Name Priority Date/Time Associated Diagnosis Comments SCREENING MAMMOGRAM BILATERAL W NIDIA Schedule Routine, Read Routine (OP Routine) 03/30/2022 9:37 AM EYE SURGEON Screening mammogram, encounter for COLONOSCOPY 04/20/2019 1:23 PM EYE SURGEON from Last 3 Months or Most Recently Relevant to Health Maintenance Results * Screening Mammogram Bilateral W Nidia (03/30/2022 9:37 AM EYE SURGEON) Anatomical Region Laterality Modality Breast Bilateral Mammography Narrative 04/03/2022 1:43 PM EYE SURGEON Mammogram Technique: Bilateral Digital Breast Tomosynthesis, Bilateral C-view 2D Screening mammogram. Views obtained: bilateral craniocaudal and bilateral mediolateral oblique. Computer Aided Detection was performed. Mammogram Findings: The present examination has been compared to a prior imaging study performed at [facility]. [facility] on 10/02/2017. The breasts are [...] to a prior imaging study performed at [facility]. [facility] on 10/02/2017. The breasts are [...] nal Result * COLONOSCOPY (04/20/2019 1:23 PM EYE SURGEON) Anatomical Region Laterality Modality Other Narrative Procedure Note Gelacio Kim MD - 04/20/2019 1:23 PM CST ENDOSCOPY LAB Patient Name: Ana Markham Procedure Date: 04/20/2019 1:23 PM Admit Type: Outpatient Room: [facility] Date of : 1970 Instrument Name: [id number] Gender: Female Note Status: Business Mgr Override Procedure: Colonoscopy Indications: Screening for colorectal [...] the bowelpreparation was evaluated using the BBPS ([place] Bowel Preparation Scale) with scores of: Right [...] Recently Relevant to Health Maintenance Insurance [facility] Member Subscriber Plan / Payer (Ef fective 2017-Present) Name:Ana Markham Relation to Subscriber:Self Name:Ana Markham Payer ID:[id number] Type:MANAGED CARE OTHER Address: [address] [employer] [facility] [employer] Care Teams Noc Analyst Relationship Specialty Start Date End Date Jonatan Roach MD [address] [place] [address] PCP - General Internal Medicine 11/18/19 Bill Walker MD [address] [facility] [address] [place] [address] [facility] 03/02/24
[2024-06-22] MEDS: SODIUM CHLORIDE 0.9% IV 1,000 ML 999 ML IV CONT (12:18)
[2024-06-22 12:19] LABS: Amphetamine Screen Urine Negative (Negative); Barbiturate Screen Urine Negative (Negative); Benzodiazepines Screen Urine Negative (Negative); Cannabinoid Screen Urine Negative (Negative); Cocaine Screen Urine Negative (Negative); Methadone Screen Urine Negative (Negative); Opiate Screen Urine Negative (Negative); Phencyclidine Screen Urine Negative (Negative)
[2024-06-22 12:20] VITALS: BP 137/88; PULSE 85; PULSE 87; RESP 13; O2SAT 98
[2024-06-22 13:12] VITALS: BP 136/82; PULSE 94; RESP 19; O2SAT 100
== END 2024-06-22 14:29 | disposition home or self-care (01) ==
PROVIDERS: Emergency Provider Emergency Medicine; PCP Internal Medicine
DX: R56.9 Unspecified convulsions (principal); V47.5XXA Car driver injured in collision with fixed or stationary object in traffic accident, initial encounter
CPT/HCPCS: 36415; 70450; 71120; 80053; 80307; 81001; 85025; 87086; 93005; 96360; 99284; J7030